=== PATIENT | male | born 2000 | race African-American/Black ===

== ENCOUNTER 2020-05-04 19:52 | Emergency (ER) | payer OTHER ==
[~2020-05-04] VITALS: Ht 185.4 cm; Wt 117.9 kg
[2020-05-04 19:52] VITALS: BP 138/89
[2020-05-04] MEDS ORDERED: NORCO 10-325 T1 EACH PO (22:05)
== END 2020-05-04 22:15 | disposition home or self-care (01) ==
LOC: ER 19:52
DX: S82.832A Other fracture of upper and lower end of left fibula, initial encounter for closed fracture (principal); W18.39XA Other fall on same level, initial encounter; Y93.89 Activity, other specified; Y92.89 Other specified places as the place of occurrence of the external cause; Y99.8 Other external cause status

== ENCOUNTER 2020-09-21 15:39 | Emergency (ER) | payer OTHER ==
[~2020-09-21] VITALS: Ht 185.4 cm; Wt 131.5 kg
[~2020-09-21 15:39] MED LIST: NORCO 10-325 T1 EACH PO
[2020-09-21] MEDS ORDERED: MOBIC7.5 MG PO (17:12)
[2020-09-21] MEDS ORDERED: ULTRAM 50MG TAB50 MG PO (17:12)
[2020-09-21 17:15] VITALS: BP 149/68
== END 2020-09-21 17:20 | disposition home or self-care (01) ==
LOC: ER 15:39
DX: S83.8X2A Sprain of other specified parts of left knee, initial encounter (principal); X50.1XXA Overexertion from prolonged static or awkward postures, initial encounter; Y93.67 Activity, basketball; Y92.89 Other specified places as the place of occurrence of the external cause; Y99.9 Unspecified external cause status